=== PATIENT | male | born 1985 | race Caucasian/White ===

== ENCOUNTER 2017-11-09 13:41 | Emergency (ER) | payer MEDICAID, SELFPAY ==
[2017-11-09 13:42] VITALS: BP 156/117; PULSE 66; RESP 20; TEMP 36.8; O2SAT 100; BMI 25.4
--- NOTE | 2017-11-09 14:11 | ED.DCSUM_ITS ---
- ER Visit Summary Date of Service: 11/09/17 Chief Complaint: Right eye burning and foreign body sensation. History of Present Illness: The patient is a 31 M no senior past medical history. Patient never had eye surgery. He wears glasses but not contacts. Says is recently been working on cars and may or may not have gotten some notes right eye. The last 2 days he has had burning mild redness or watering. Symptoms photophobia. Any trauma. No discharge. No visual change. She does not wear contacts Physical Examination: Well appearing young male. Vital signs are stable and afebrile. HEENT exam unremarkable. Pupils round reactive light is intact both eyes are injected. There is watery. Otherwise no trauma. No periorbital edema. No preauricular adenopathy. No discharge. Neck nontender no lymphadenopathy. Lungs clear to auscultation bilaterally. Heart regular rhythm no murmur. Abdomen soft nontender. Moving all 4 extremities. No edema. Neurologic exam is normal. Shoulder motions are intact. No palsy. Test Results: None Emergency Department Course and Treatment: Tetracaine to his right I gave him immediate relief. Then applied fluorescein stain did a slit lamp examination which was completely normal. Other than watering is no foreign body. No ulcer. No corneal abrasion. No signs of bacterial infection. No discharge. Upper and lower lids been minimally swollen with otherwise unremarkable. Left eye was also slit-lamp examination was unremarkable also. Treatment Plan: Strict ophthalmic ointment discharged home. Treated as a viral conjunctivitis. Disposition: Discharge Impression: Eye pain secondary to viral conjunctivitis This note was generated with [employer] dictation software. It may contain incorrect words, spelling, and punctuation that were not noted in review of the chart prior to signing ED Disposition - Plan for ED Patient: Chief Complaint: Eye Problem Referrals: Care Physician,No Primary [Primary Care Provider] -
--- NOTE | 2017-11-09 14:13 | ED.RN ---
called pharmacy forflurine strips possibly get from or.
--- NOTE | 2017-11-09 15:45 | ED.DEP ---
ED Disposition - Plan for ED Patient: Disposition: Home or Assisted Living Chief Complaint: Eye Problem Instructions: ED Conjunctivitis Nonspecific Referrals: Adrien Ceja MD [STAFF PHYSICIAN] - 3-5 Days if not improving Additional Instructions: Compresses to prevent matting to your eyes. Eye ointment 3 times a day till gone. Return if feeling worse or follow-up with the eye doctor if not getting better.
[2017-11-09 16:24] VITALS: BP 130/84; PULSE 79; RESP 16; O2SAT 100
== END 2017-11-09 16:25 | disposition home or self-care (01) ==
PROVIDERS: Emergency Provider Emergency Medicine
DX: B30.9 Viral conjunctivitis, unspecified (principal); Z72.0 Tobacco use
CPT/HCPCS: 99282

== ENCOUNTER 2021-08-29 09:38 | Emergency (ER) | payer MEDICAID, SELFPAY ==
[2021-08-29 09:38] VITALS: BP 127/53; PULSE 87; RESP 16; TEMP 36.1; O2SAT 100; BMI 23.6
--- NOTE | 2021-08-29 10:12 | EDS_ITS ---
HPI HPI - Psych History of Present Illness Chief Complaint: Suicidal Informant: patient Narrative Narrative: Patient dropped off by [facility]'s office for mental health evaluation. Patient reportedly was arrested after having a verbal altercation with his . Pillow slip filled out by [facility]'s office states that the patient made statements that he was going to hang himself to the arresting officer. Patient denies that to me stating that if he was going to be away from his family he might as well be left to in a hole. He denies suicidal ideation or any plan. He denies prior attempt. He reported did talk to crisis on the phone when he was at the intermediate. He states he felt that interaction was very awkward. PFSH PFSH Medical History no medical history no medical history Home Medications NK 11/09/17 [History Last Taken Unknown] Allergy/AdvReac Type Severity Reaction Status Date / Time No Known Allergies Allergy Verified 08/29/21 09:43 Surgical History no surgical history Social History Smoking Status: Current every day smoker tobacco type: cigarettes ROS ROS ED Constitutional Constitutional ED: Denies chills or fever(s) Eyes Eyes: Denies change in vision ENT ENT ED: Denies sore throat Cardiovascular Cardiovascular: Denies chest pain Respiratory/Chest Respiratory/Chest: Denies cough or dyspnea Gastrointestinal Gastrointestinal: Denies abdominal pain, diarrhea, nausea or vomiting Genitourinary Genitourinary ED: Denies dysuria Musculoskeletal Musculoskeletal: Denies back pain Integumentary Denies rash Neurologic Neurologic: Denies headache(s) or weakness Psychiatric Psychiatric: Reports depression; Denies anxiety Allergic/Immunologic Allergic/Immunologic ED: Denies urticaria EXAM Physical Exam Const Vital Signs: 08/29/21 09:38 Temperature 96.9 F L Temperature Source Temporal Pulse Rate 87 Respiratory Rate 16 Blood Pressure 127/53 H Blood Pressure Mean 77 Pulse Ox 100 Oxygen Delivery Method Room Air Positive well nourished and well developed General Appearance ED: well developed HEENT normocephalic Eyes PERRL and EOMs intact bilaterally Resp normal respiratory effort and clear to auscultation bilaterally Cardio Rate: regular rate Rhythm: regular rhythm GI Palpation: soft Neuro oriented x3 and CN's II-XII intact bilaterally Sensorium / Orientation: alert Motor Exam: strength 5/5 throughout Psych mental status grossly normal Appearance: grossly normal, appropriate and well kempt Attitude: calm Speech: normal speech Mood & Affect: euthymic mood Skin Lesions: no lesions Rashes: no rashes [facility] Treatment and Re-Evaluation Comments:: Patient on my interview denies suicidal ideation, plan, or prior attempt. I spoke with crisis and asked them to reevaluate the patient. After speaking with the patient on the phone they agree patient can be safety plans to home. Close follow-up instructions were provided. Discharge Plan Triage Chief Complaint: Suicidal ED Provider: Batsheva Walton Dx/Rx/DC Orders Clinical Impression: Depression Instructions: ED Depression Prescriptions: No Action NK RF: 0 Primary Care Provider: Care Physician,No Primary Referrals: Counseling,Center [GROUP OF PHYSICIANS] - As soon as possible Care Physician,No Primary [Primary Care Provider] - Disposition Disposition: Home, Self Care
--- NOTE | 2021-08-29 11:45 | CM.ED ---
Social Work Telephone call from Stefania Morataya. Patient has been safety planned. Medical team updated. Ramon Garcia MSW, ARNAV
--- NOTE | 2021-08-29 12:18 | ED.RN ---
SAFETY PLAN REVIEWED WITH PT, HE VOICES UNDERSTANDING. REVIEWED WITH PT HOW TO OBTAIN ASSISTANCE IF SUICIDAL IDEATIONS, PT VOICES UNDERSTANDING
== END 2021-08-29 12:19 | disposition home or self-care (01) ==
PROVIDERS: Emergency Provider Emergency Medicine; Visit Provider Emergency Medicine
DX: F32.A Depression, unspecified (principal); F17.210 Nicotine dependence, cigarettes, uncomplicated
CPT/HCPCS: 99282

== ENCOUNTER 2022-04-08 13:16 | Emergency (ER) | payer MEDICAID, SELFPAY ==
[2022-04-08 13:18] VITALS: BP 150/97; PULSE 113; RESP 16; TEMP 36.5; O2SAT 97; BMI 25.1
--- NOTE | 2022-04-08 13:48 | EX.ED.VIS.EY ---
HPI History of Present Illness Chief Complaint: Eye Problem Narrative Narrative: 36-year-old male presenting with left eye irritation. He states that 3 days ago he got some oil and rust in his eye and irrigated this out. He started to feel like it was getting better but now it is more irritated. He does not feel as if there is any foreign bodies in his eye. He is not had a lot of weeping or tearing. He is a noncontact wearer. He states that his vision seems and may be a little foggy in the left eye. [facility] Medical History Traumatic rupture of left ear drum Home Medications erythromycin 5 mg/gram (0.5 %) eye ointment 0.5 inch EACH EYE TID #3.5 grams 04/08/22 [Rx Last Taken Unknown] Allergy/AdvReac Type Severity Reaction Status Date / Time No Known Allergies Allergy Verified 08/29/21 09:43 Surgical History H/O adenoidectomy Hx of tonsillectomy Hx of umbilical hernia repair Social History Smoking Status: Light Smoker (<10/day) ROS ROS ED Constitutional Constitutional ED: Denies chills or fever(s) Eyes Eyes: Reports change in vision left ENT ENT ED: Denies rhinorrhea or sore throat Cardiovascular Cardiovascular: Denies chest pain or palpitations Respiratory/Chest Respiratory/Chest: Denies cough or dyspnea Gastrointestinal Gastrointestinal: Denies abdominal pain or constipation Genitourinary Genitourinary ED: Denies dysuria or hematuria Musculoskeletal Musculoskeletal: Denies arthralgias or back pain Integumentary Denies abscess or Abrasions Neurologic Neurologic: Denies headache(s) or paresthesias Psychiatric Psychiatric: Denies anxiety or depression EXAM Physical Exam Const Vital Signs: 04/08/22 13:18 Temperature 97.7 F L Temperature Source Temporal Pulse Rate 113 H Respiratory Rate 16 Blood Pressure 150/97 H Blood Pressure Mean 114 Pulse Ox 97 Oxygen Delivery Method Room Air Positive well nourished General Appearance ED: NAD HEENT atraumatic Eyes PERRL, EOMs intact bilaterally, no scleral icterus and normal visual ashley by confrontation Alignment: alignment normal Periorbital: periorbital findings normal Eyelid: eyelids normal Pupil: PERRL Direct Ophthalmoscopy: normal light reflex Slit Lamp: lids/lashes/lacrimal system MDM MDM MDM Narrative Medical decision making narrative: Patient's eye was examined with fluorescein and tetracaine. I did not see any obvious corneal abrasion. I do not see any foreign bodies. The patient does state that there are times when he gets a drainage from his lower eyelid but I do not see any fluctuance here or any sign of stye. He does have an consumer science teacher he can follow-up with. I will put him on erythromycin here. Patient stable for discharge. Impression: 1. Eye pain Lab Data Attestation: I reviewed the patient's lab results. Discharge Plan Triage Chief Complaint: Eye Problem ED Provider: Reginaldo Sales Dx/Rx/DC Orders Instructions: Corneal Injury Prescriptions: New erythromycin 5 mg/gram (0.5 %) ointment 0.5 inch EACH EYE TID Qty: 3.5 0RF Primary Care Provider: Care Physician,No Primary Referrals: Care Physician,No Primary [Primary Care Provider] - Disposition Disposition: Home, Self Care
[2022-04-08] MEDS: Tetracaine 0.5% Ophthalmic Bottle 1 DRP LEFT EYE (14:08)
[2022-04-08] MEDS: Fluorescein 1 MG STRIP 1 STRIP LEFT EYE (14:09)
[2022-04-08] MEDS: Erythromycin Base 1 OPTH.TUBE 1 APPLIC LEFT EYE (15:32)
== END 2022-04-08 15:49 | disposition home or self-care (01) ==
PROVIDERS: Emergency Provider Student in an Organized Health Care Education/Training Program; Visit Provider Student in an Organized Health Care Education/Training Program
DX: H57.10 Ocular pain, unspecified eye (principal); F17.200 Nicotine dependence, unspecified, uncomplicated
CPT/HCPCS: 99283